=== PATIENT | female | born 1975 | race African-American/Black ===

== ENCOUNTER 2017-10-01 10:24 | Emergency (ER) | payer SELFPAY ==
[2017-10-01 10:53] VITALS: BP 140/76; PULSE 79; TEMP 98.7
[2017-10-01] MEDS ORDERED: IBUPROFEN 600 MG TABLET (FP) PO ONE ×2 (11:12→11:14)
--- NOTE | 2017-10-01 11:19 | PDOC ---
History of Present Illness - General Chief Complaint: Cold Symptoms Stated Complaint: COLD SYMPTOMS Time Seen by Provider: 10/01/17 11:03 History Source: Patient Exam Limitations: No Limitations - History of Present Illness Initial Comments: 10/01/17 11:13 42 yr female no medical history c/o cough for one week and sinus congestion with headache neg nasal drip. pt denies fever no chills no SOB no chest pain. 10/01/17 11:19 10/01/17 11:27 Timing/Duration: reports: week Severity: reports: mild Associated Symptoms: reports: cough, facial pain Past History - Past Medical History Allergies/Adverse Reactions: Allergies Allergy/AdvReac Type Severity Reaction Status Date / Time No Known Allergies Allergy Verified 10/01/17 10:30 Home Medications: Ambulatory Orders Triamcinolone Acetonide [Nasacort] 10.8 ml NS DAILY #1 bottle 10/01/17 COPD: No Other medical history: denies - Suicide/Smoking/Psychosocial Hx Smoking History: Never smoked Information on smoking cessation initiated: No Hx Alcohol Use: No Drug/Substance Use Hx: No Substance Use Type: None *Physical Exam - Vital Signs Last Vital Signs Temp Pulse Resp BP Pulse Ox 98.7 F 79 18 140/76 98 10/01/17 10:28 10/01/17 10:28 10/01/17 10:28 10/01/17 10:28 10/01/17 10:28 - Physical Exam General Appearance: Yes: Nourished, Appropriately Dressed HEENT: positive: EOMI, ASHLIE, Normal ENT Inspection, Nasal Congestion, Sinus Tenderness Neck: positive: Supple Respiratory/Chest: positive: Lungs Clear, Normal Breath Sounds. negative: Rhonchi, Stridor, Wheezing Cardiovascular: positive: Regular Rhythm, Regular Rate Gastrointestinal/Abdominal: positive: Normal Bowel Sounds, Soft Musculoskeletal: positive: Normal Inspection Extremity: positive: Normal Capillary Refill, Normal Inspection, Normal Range of Motion Integumentary: positive: Normal Color, Dry, Warm Neurologic: positive: Fully Oriented, Alert, Normal Mood/Affect, Normal Response , Motor Strength 5/5 Medical Decision Making - Medical Decision Making 10/01/17 11:28 cc: headache, cough sinus tenderness no nasal discharge, no fever or sob dry cough pt has taken no meds at home will give ibuprofen now dc home with nasocrot spray 10/01/17 13:34 referral for PMD given as pt is asking for a prescription for Mamogram *DC/Admit/Observation/Transfer Diagnosis at time of Disposition: Cough Acute frontal sinusitis Qualifiers: Recurrence: not specified as recurrent Qualified Code(s): J01.10 - Acute frontal sinusitis, unspecified - Discharge Dispostion Disposition: HOME Condition at time of disposition: Good - Prescriptions Prescriptions: Triamcinolone Acetonide [Nasacort] 10.8 ml NS DAILY #1 bottle - Referrals Referrals: Miguel Chu MD [Staff Physician] - Cayetano Maldonado MD [Staff Physician] - - Patient Instructions Additional Instructions: use the nose spray as directed take over the counter advil, ibuprofen or tylenol for headache as directed drink pleanty of fluids to stay hydrated follow with [facility] for any worsening symptoms - Post Discharge Activity
== END 2017-10-01 11:42 | disposition home or self-care (01) ==
LOC: JERFT 10:24
DX: J01.10 Acute frontal sinusitis, unspecified (principal); R05 Cough
CPT/HCPCS: 99281-25

== ENCOUNTER 2018-06-10 11:17 | Emergency (ER) | payer OTHER ==
[2018-06-10 11:43] VITALS: BP 111/54; PULSE 88; TEMP 98.5; BMI 30.1
--- NOTE | 2018-06-10 11:51 | PDOC ---
Attending Attestation - HPI HPI: 06/10/18 13:22 Patient is a 43 year old female with a significant past medical history of cardiomyopathy, CHF, HTN, who presents to the ED with complaints of bilateral calf pain that began x3 days ago. Patient reports giving on april 21 2018 and was told upon being discharged, to return to the hospital if you began to experiencing anything unusual. She reports bilateral leg pain is an intermittent pain that radiates from her knees to her ankles and is worsened when standing. Patient reports being on her feet for multiple hours of the day yesterday due to taking care of her child. She reports being concerned that the bilateral leg pain is due to a blood clot, prompting her to come into the ED for further evaluation. Denies chest pain, Sob. Denies nausea, vomiting. Denies fevers, chills. Denies contact with sick individuals, out of state travelling. Denies dysuria, hematuria, constipation, diarrhea. Denies any other symptoms. Allergies: None Social history: Lives with child. No smoking.No alcohol. No illicit drugs. Surgical history: C - section PMD: None - Physicial Exam PE: 06/10/18 13:22 GENERAL: Awake, alert, and fully oriented, in no acute distress HEAD: No signs of trauma EYES: PERRLA, EOMI, sclera anicteric, conjunctiva clear ENT: Auricles normal inspection, hearing grossly normal, nares patent, oropharynx clear without exudates. Moist mucosa NECK: Normal ROM, supple, no lymphadenopathy, JVD, or masses LUNGS: Breath sounds equal, clear to auscultation bilaterally. No wheezes, and no crackles HEART: Regular rate and rhythm, normal S1 and S2, no murmurs, rubs or gallops ABDOMEN: Soft, nontender, normoactive bowel sounds. No guarding, no rebound. No masses EXTREMITIES: Normal range of motion, no edema. No clubbing or cyanosis. No cords, erythema, or tenderness NEUROLOGICAL: Cranial nerves II through XII grossly intact. Normal speech, normal gait SKIN: Warm, Dry, normal turgor, no rashes or lesions noted. <Juan Kevin - Last Filed: 06/10/18 13:22> - Medical Decision Making 06/10/18 13:45 Pt presents to the ED complaining of bilateral leg pain. Concern for DVT. No edema or chest complaints. Will check duplex, likely discharge home if duplex is negative. 06/10/18 13:46 <Maggie Colmenares - Last Filed: 06/10/18 13:53>
[2018-06-10] MEDS ORDERED: ACETAMINOPHEN 325 MG TABLET (FP) PO ONE (12:12)
[2018-06-10] MEDS ORDERED: ACETAMINOPHEN 325 MG TABLET (FP) ONE (12:28)
[2018-06-10 12:54] LABS: BASO % 0.6 % (0-2.0); EOS % 2.1 % (0-4.5); HEMATOCRIT 40.3 % (32.4-45.2); HEMOGLOBIN 13.4 GM/dL (10.7-15.3); LYMPH % 22.2 % (8-40); MCHC 33.1 g/dl (32.0-36.0); MEAN CELL VOLUME 87.4 fl (80-96); MEAN PLT VOLUME 8.9 fl (7.5-11.1); MONO % 6.2 % (3.8-10.2); NEUT % 68.9 % (42.8-82.8); PLATELET COUNT 206 K/MM3 (134-434); RBC 4.61 M/mm3 (3.60-5.2); RDW 15.2 % (11.6-15.6); WHITE BLOOD COUNT 6.5 K/mm3 (4.0-10.0)
[2018-06-10 13:09] LABS: ALBUMIN 3.6 g/dl (3.4-5.0); ANION GAP 7 (8-16); BILIRUBIN,TOTAL 0.4 mg/dL (0.2-1.0); BLOOD UREA NITROGEN 16 mg/dL (7-18); CHLORIDE 108 mmol/L (98-107); CO2 29 mmol/L (21-32); CREATININE 1.1 mg/dL (0.55-1.02); GLUCOSE,RANDOM 105 mg/dL (74-106); POTASSIUM 4.2 mmol/L (3.5-5.1); SGOT/AST 14 U/L (15-37); SGPT/ALT 24 U/L (12-78); SODIUM 144 mmol/L (136-145); TOT PROT 6.9 g/dl (6.4-8.2)
[2018-06-10 13:12] LABS: ALK PHOS 110 U/L (45-117); N-TERMINAL BNP 2337.13 pg/ml (5-125)
--- NOTE | 2018-06-10 13:25 | PDOC ---
History of Present Illness - General Chief Complaint: Pain, Acute Stated Complaint: LEG PAIN Time Seen by Provider: 06/10/18 11:50 - History of Present Illness Initial Comments: 06/10/18 13:18 43 year old w/ history of CHF, HTN, obesity and new cardiomyopathy who presents with bilateral leg pain from the knee to the ankle for 1 day ago. The pain is rated 5-6/10 described as achey and "grabbing," intermittent and worse with standing. She denies any swelling of the legs, chest pain, SOB, abdominal pain, fevers, N/V. She admits that she is on her feet a lot during the day and night as she cares for her 1 month old baby. She states that she is nervous about the pain as she was recently hospitalized for her cardiomyopathy and had strict return precautions to the ED. She has no other complaints at bedside. She denies any BCP. PMHX: as in HPI PSHX: none Meds: lasix, carvedilol, spironolaxtone, valsartan Allergies: NKDA Tob: none Etoh: none Rec drugs: none Past History - Past Medical History Allergies/Adverse Reactions: Allergies Allergy/AdvReac Type Severity Reaction Status Date / Time No Known Allergies Allergy Verified 05/22/18 02:38 Home Medications: Ambulatory Orders Carvedilol [Coreg -] 12.5 mg PO BID 05/22/18 Spironolactone 25 mg PO DAILY 05/22/18 Furosemide [Lasix -] 20 mg PO DAILY tablet 05/25/18 Sacubitril/Valsartan [Entresto 24 mg-26 mg Tablet] 1 tab PO BID #30 tablet 05/25 Asthma: No Cancer: No Cardiac Disorders: No COPD: No Diabetes: Yes (Gestational Diabetes on glyburide) HTN: Yes (hx of htn, not on meds) Seizures: No Thyroid Disease: No Other medical history: complications after child 04/21/18 - Surgical History Abdominal Surgery: Yes () - Immunization History Immunization Up to Date: Yes - Suicide/Smoking/Psychosocial Hx Smoking History: Never smoked Have you smoked in the past 12 months: No Hx Alcohol Use: No Drug/Substance Use Hx: No Substance Use Type: None Hx Substance Use Treatment: No Review of Systems - Review of Systems Able to Perform ROS?: Yes Is the patient limited [place]ian proficient: No Constitutional: No: Chills, Diaphoresis, Fever HEENTM: No: Eye Pain, Tinnitus Respiratory: No: Cough, Shortness of Breath Cardiac (ROS): No: Chest Pain, Chest Tightness ABD/GI: No: Constipated, Diarrhea, Nausea, Vomiting Musculoskeletal: No: Muscle Pain, Muscle Weakness Neurological: No: Headache *Physical Exam - Vital Signs Last Vital Signs Temp Pulse Resp BP Pulse Ox 98.5 F 88 16 111/54 99 06/10/18 11:28 06/10/18 11:28 06/10/18 11:28 06/10/18 11:28 06/10/18 11:28 - Physical Exam Comments: 06/10/18 13:25 GENERAL: Awake, alert, and fully oriented, in no acute distress HEAD: No signs of trauma, normocephalic, atraumatic EYES: EOMI, sclera anicteric, conjunctiva clear ENT: Moist mucosa NECK: Normal ROM LUNGS: No distress, speaks full sentences, clear to auscultation bilaterally HEART: Regular rate and rhythm, normal S1 and S2, no murmurs, rubs or gallops, peripheral pulses normal and equal bilaterally. EXTREMITIES : Normal inspection, Normal range of motion, no edema. No clubbing or cyanosis. 5/5 strength in lower extremities NEUROLOGICAL: Normal speech, normal gait, no focal sensorimotor deficits SKIN: Warm, Dry, normal turgor, no rashes or lesions noted ED Treatment Course - LABORATORY CBC & Chemistry Diagram: 06/10/18 12:23 06/10/18 12:20 - ADDITIONAL ORDERS Additional order review: 06/10/18 12:23 RBC 4.61 MCV 87.4 MCHC 33.1 RDW 15.2 MPV 8.9 Neutrophils % 68.9 Lymphocytes % 22.2 D Monocytes % 6.2 Eosinophils % 2.1 Basophils % 0.6 - RADIOLOGY Radiology Studies Ordered: Category Date Time Status DUPLEX VASCUL US-2LEGS [US] Stat Ultrasound 06/10/18 12:10 Ordered - Medications Given in the ED: ED Medications Discontinued Medications Generic Name Dose Route Start Last Admin Trade Name Freq PRN Reason Stop Dose Admin Acetaminophen 650 mg 06/10/18 12:12 06/10/18 12:30 Tylenol - PO 06/10/18 12:13 650 mg ONCE ONE Administration Medical Decision Making - Medical Decision Making 06/10/18 13:28 43 year old w/ history of CHF, HTN, obesity and new cardiomyopathy who presents with bilateral leg pain from the knee to the ankle for 1 day ago. The patient's history and symptoms do not show swelling which would make CHF exacerbation more highly suspected, and the bilateral nature of the pain is inconsistent with DVT, however these causes for pain must be evaluated as they are possible etiologies in this patient considering her history. Also consider leg pain due to muscle strain and overuse in the setting of obesity. *DC/Admit/Observation/Transfer Diagnosis at time of Disposition: Leg pain, bilateral - Discharge Dispostion Disposition: HOME Condition at time of disposition: Stable Decision to Admit order: No - Referrals - Patient Instructions Printed Discharge Instructions: DI for Leg Pain Additional Instructions: You were seen in the ED for complaint of leg pain. You were evaluated with labwork and imaging in the ED which did not show an acute need for admission. Please follow up with your primary care physician in 1 week for further work up and care. Return to the ED immediately if the pain worsens, significant swelling occurs, you feel short of breath, have chest pain or fever. - Post Discharge Activity
== END 2018-06-10 16:07 | disposition home or self-care (01) ==
LOC: JER 11:17
DX: M79.604 Pain in right leg (principal); M79.605 Pain in left leg; I50.9 Heart failure, unspecified; I10 Essential (primary) hypertension; E66.9 Obesity, unspecified; O90.3 Peripartum cardiomyopathy
CPT/HCPCS: 36415; 80053; 83880; 85025; 93970-TC; 99282-25